=== PATIENT | female | born 1940 | race Hispanic/Latino ===

== ENCOUNTER 2016-09-13 08:53 | Outpatient (CLI) | payer MEDICARE, OTHER ==
--- NOTE | 2016-09-13 13:48 | Ultrasound Report ---
TRANSABDOMINAL AND TRANSVAGINAL PELVIC ULTRASOUND: 09/13/16 08:53:00 CLINICAL: Cyst on CT scan. FINDINGS: Transabdominal and transvaginal pelvic ultrasound demonstrated a normal postmenopausal uterus measuring 5.0 x 3.6 x 4.2 cm. Normal uterine contour and echogenicity.The endometrium is normal and measures 4.1 mm AP thickness. Normal right ovary with small follicles. The right ovary measures 2.9 x 1.3 x 1.7cm. A left ovary is not identified. A midline cyst is identified superior to the uterine fundus. It has a smooth thin wall and measures 5.3 x 3.8 x 4.8 cm. No free fluid. Normal urinary bladder. IMPRESSION: A 5.3 cm midline pelvic cyst which is probably ovarian in origin and possibly arising from the left ovary. Normal uterus and right ovary.
== END 2016-09-13 08:54 | disposition home or self-care (01) ==
LOC: SPVWC 08:53
PROVIDERS: ATTEND Internal Medicine
DX: D25.2 Subserosal leiomyoma of uterus (principal); N83.209 Unspecified ovarian cyst, unspecified side
CPT/HCPCS: 76830; 76856

== ENCOUNTER 2018-05-06 11:07 | Outpatient (CLI) | payer MEDICARE, OTHER ==
--- NOTE | 2018-05-06 15:18 | Ultrasound Report ---
TRANSABDOMINAL AND TRANSVAGINAL PELVIC ULTRASOUND: 05/06/18 11:07:00 CLINICAL: Followup ovarian cyst. FINDINGS: Transabdominal and transvaginal pelvic ultrasound demonstrated a normal uterus measuring 6.6 x 2.5 x 4.3 cm. Normal uterine contour and echogenicity. The endometrium is normal and measures 2.9 mm AP thickness. An oval relatively anechoic cyst with a smooth thin wall is located posterior to the uterus and measures 5.9 x 4.0 x 5.0 cm compared to 5.3 x 3.8 x 4.8 cm on the last exam. Distinct ovaries are not identified. No free fluid. Normal urinary bladder. IMPRESSION: A 5.9 cm midline pelvic cyst with benign morphology. No significant change compared to the previous exam. Recommend continued ultrasound surveillance with a repeat endovaginal ultrasound in six months.
== END 2018-05-06 11:08 | disposition home or self-care (01) ==
LOC: SPVWC 11:07
PROVIDERS: ATTEND Obstetrics & Gynecology
DX: N94.89 Other specified conditions associated with female genital organs and menstrual cycle (principal); E78.00 Pure hypercholesterolemia, unspecified; M19.90 Unspecified osteoarthritis, unspecified site; Z87.891 Personal history of nicotine dependence; Z90.89 Acquired absence of other organs; Z90.49 Acquired absence of other specified parts of digestive tract; Z90.12 Acquired absence of left breast and nipple
CPT/HCPCS: 76830; 76856